=== PATIENT | female | born 1955 | race Caucasian/White ===

== ENCOUNTER 2021-02-09 15:10 | Emergency (ER) | payer OTHER ==
[~2021-02-09] VITALS: Ht 170.2 cm; Wt 52.0 kg
--- NOTE | 2021-02-09 15:29 | PHYS DOC ---
Past History Past Medical History: Cancer (tongue) Adult General HPI HPI Patient is a 65-year-old female presenting for diarrhea. This is a subacute issue. 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 She has had numerous surgeries and skin grafts for this and is currently completing chemotherapy and radiation with most recent treatment being yesterday. Patient reports she was diagnosed with C. difficile infection January 24 and completed an appropriate 10-day course of p.o. vancomycin. She reported transient improvement in symptoms but yesterday after her treatment session, she notified her oncologist who ultimately advised her to seek care at local ER for repeat evaluation and she does not have a primary care physician. Patient reports she waited at [facility] ER but it took too long so she left without being seen. She lives local to [facility] and so, she presents for evaluation and requesting treatment for her C. difficile Review of Systems Review of Systems Fourteen body systems of review of systems have been reviewed. See HPI for pertinent positives and negative responses, other doherty all other systems are negative, non-pertinent or non-contributory Physical Exam Physical Exam Constitutional: Appears older than stated age, thin, no acute distress HENT: Normocephalic, atraumatic, bilateral external ears normal, oropharynx moist, tongue with significant visual and palpable abnormality consistent with recent surgery and history of cancer. There is some slight white exudate present on dorsal portion of tongue likely physiologic. She is tolerating her secretions well with phonation changes that are chronic due to underlying malignant process, nose normal. Eyes: PERRLA, EOMI, conjunctiva normal, no discharge. Neck: Normal range of motion, no tenderness, supple, no stridor. Cardiovascular: Heart rate regular, sinus rhythm, no murmurs rubs or gallops Lungs & Thorax: Bilateral breath sounds clear to auscultation Abdomen: Bowel sounds normal, soft, no tenderness, no masses, no pulsatile masses. Nonsurgical abdomen, no peritoneal signs Skin: Warm, dry, no erythema, no rash. Various skin changes on bilateral upper extremities and left anterior thigh from prior skin grafts Back: No tenderness, no CVA tenderness. Extremities: No tenderness, no cyanosis, no clubbing, ROM intact, no edema. Neurologic: Alert and oriented X 3, grossly normal motor & sensory function, no focal deficits noted. Psychologic: Affect normal, judgement normal, mood normal. Current Patient Data Vital Signs Vital Signs Date Time Temp Pulse Resp B/P (MAP) Pulse Ox O2 Delivery O2 Flow Rate FiO2 02/09/21 15:29 98.7 75 18 135/69 (91) 100 Room Air Vital Signs Date Time Temp Pulse Resp B/P (MAP) Pulse Ox O2 Delivery O2 Flow Rate FiO2 02/09/21 15:29 98.7 75 18 135/69 (91) 100 Room Air EKG EKG [] Radiology/Procedures Radiology/Procedures [] Heart Score C/O Chest Pain: No Risk Factors: Risk Factors: DM, Current or recent (<one month) smoker, HTN, HLP, family history of CAD, obesity. Risk Scores: Risk Factors: DM, Current or recent (<one month) smoker, HTN, HLP, family history of CAD, obesity. Course & Med Decision Making Course & Med Decision Making ABCs unremarkable History and physical exam concerning for second occurrence of C. difficile infection. Patient brought stool sample for evaluation today but I disclosed this is not necessary as it will be positive, we will be treating the patient and her symptoms instead I agree with oncology's recommendation for continued need for repeat trial of p.o. vancomycin for second occurrence of her C. difficile infection. She is hemodynamically stable and afebrile. Plans for 125 mg p.o. every 6 hours for 10 days Patient has good access to oncology and other subspecialists at [facility], I advised her to contact them immediately after ER departure to review ER visit today and need for next steps in care Patient is tolerating p.o. intake as evidenced by recent ingestion of [employer] milkshake prior to arrival. I disclose strict return precautions that should prompt her to come back for an emergent medical management Dragon Disclaimer Dragon Disclaimer This electronic medical record was generated, in whole or in part, using a voice recognition dictation system. Departure Departure: Impression: Primary Impression: C. difficile diarrhea Disposition: HOME / SELF CARE / HOMELESS Condition: STABLE Referrals: PCP,NO (PCP) Additional Instructions: You were seen in the ED for evaluation of diarrhea. While the cause of the diarrhea is likely a second occurrence of your recent C. difficile infection and will require antibiotic therapy. We will be prescribing you an additional course of p.o. vancomycin which she should take as scheduled to completion. It will be important to monitor your fluid intake to avoid dehydration and other symptoms closely as if your symptoms to not improve in the next few days, you will likely need further testing and more aggressive management. Please return to the ED if you have new or worrisome symptoms. Scripts Vancomycin Hcl (VANCOMYCIN HCL) 125 Mg Capsule 1 CAP PO QID for c difficile diarrhea for 10 Days, #40 CAP 0 Refills Prov: LUZ MAGALLANES DO 02/09/21 LUZ MAGALLANES DO Feb 09, 2021 15:28
[2021-02-09] MEDS ORDERED: VANC125C3 PO (16:11)
[2021-02-09] MEDS ORDERED: VANCOMYCIN 125 MG/2.5 ML ORAL SOLUTION. PO ONE (16:30)
[2021-02-09 16:37] VITALS: BP 128/78
== END 2021-02-09 16:38 | disposition home or self-care (01) ==
LOC: ER 15:10
DX: R19.7 Diarrhea, unspecified (principal)
CPT/HCPCS: 99283-25